=== PATIENT | female | born 1935 | race Caucasian/White ===

== ENCOUNTER → 2017-01-04 | Outpatient (CLI) | payer OTHER, BC ==
--- NOTE | 2017-01-04 15:23 | DX ---
Right fifth toe, 3 views History: Trauma, pain, stubbed toe last night. Findings: Transverse nondisplaced fracture of the right fifth toe proximal phalanx of the distal neck region without extension to the articular surface, angulation or displacement. No definite additiona l fractures noted. Impression: Nondisplaced right fifth toe proximal phalanx fracture.
== END ==
LOC: BMCIMAGING 12:56
PROVIDERS: ATTEND Emergency Medicine
DX: S92.514A Nondisplaced fracture of proximal phalanx of right lesser toe(s), initial encounter for closed fracture (principal)

== ENCOUNTER → 2017-01-13 | Outpatient (CLI) | payer OTHER, BC | LOC: BMCIMAGING 10:12 | DX: Z12.31 Encounter for screening mammogram for malignant neoplasm of breast (principal) | CPT/HCPCS: G0202 ==

== ENCOUNTER → 2018-02-01 | Outpatient (CLI) | payer OTHER, BC | LOC: BMCIMAGING 12:57 | PROVIDERS: ATTEND Internal Medicine | DX: Z12.31 Encounter for screening mammogram for malignant neoplasm of breast (principal) ==

== ENCOUNTER → 2018-02-17 | Outpatient (CLI) | payer OTHER, BC | LOC: BMCIMAGING 15:50 | PROVIDERS: ATTEND Internal Medicine | DX: J18.0 Bronchopneumonia, unspecified organism (principal); J98.09 Other diseases of bronchus, not elsewhere classified ==

== ENCOUNTER → 2018-03-04 | Outpatient (CLI) | payer OTHER, BC | LOC: FIMAGING 14:40 | PROVIDERS: ATTEND Internal Medicine | DX: J98.09 Other diseases of bronchus, not elsewhere classified (principal); I25.10 Atherosclerotic heart disease of native coronary artery without angina pectoris; I89.9 Noninfective disorder of lymphatic vessels and lymph nodes, unspecified ==

== ENCOUNTER → 2019-05-09 | Outpatient (CLI) | payer OTHER | LOC: BMCIMAGING 13:09 ==